=== PATIENT | female | born 1955 | race Caucasian/White ===

== ENCOUNTER → 2021-08-05 | Outpatient (CLI) | payer MEDICARE ==
[2021-08-05 14:02] LABS: BUN/CREATININE RATIO 15 (0-10)
== END ==
LOC: MRI 08-01 14:00
PROVIDERS: Family Medicine
DX: R22.0 Localized swelling, mass and lump, head (principal); G93.9 Disorder of brain, unspecified; M62.81 Muscle weakness (generalized); G31.9 Degenerative disease of nervous system, unspecified
CPT/HCPCS: 36415; 70553; 80053; A9577